=== PATIENT | female | born 1995 | race Caucasian/White ===

== ENCOUNTER 2020-12-02 20:44 | Emergency (ER) | payer OTHER ==
[~2020-12-02] VITALS: Ht 160 cm; Wt 81.6 kg
--- NOTE | 2020-12-02 20:44 | NUR ---
PT MADDY LES. TAKEN TO BED 4
--- NOTE | 2020-12-02 20:45 | NUR ---
25 Y/O F BIBA DUE TO GEN BODY WEAKNESS X6 DAYS. PER EMS, FAMILY STATED THAT SHE "ALMOST FELL ON THE FLOOR." PT STATES SHE HAS HEADACHE OF 7/10. A&OX4. GCS 15. DENIES N/V/D; SKIN IS PINK/WARM/DRY; EVEN AND STEADY GAIT; LUNGS CLEAR BL; HR EVEN AND REGULAR; PT DENIES ANY FEVER, CP, SOB, OR COUGH AT THIS TIME; PATIENT STATES PAIN OF 0/10 AT THIS TIME; VSS; PATIENT POSITIONED FOR COMFORT; HOB ELEVATED; BEDRAILS UP X2; BED DOWN. ER MD MADE AWARE OF PT STATUS. PMH: ANXIETY ALLERGIES: CIPROFLOXACIN
--- NOTE | 2020-12-02 21:10 | NUR ---
Dr. Harper examining patient.
[2020-12-02 21:11] VITALS: BP 155/104
[2020-12-02] MEDS ORDERED: NACL 0.9% 1,000 ML IV ONE (21:20)
--- NOTE | 2020-12-02 23:22 | NUR ---
IV removed, catheter intact and site benign. Applied folded 4x4 gauze and tape to stop bleeding.
[2020-12-02 23:26] VITALS: BP 155/104
--- NOTE | 2020-12-02 23:26 | NUR ---
Patient discharged with v/s stable. Written and verbal after care instructions given and explained. Patient verbalized understanding. Ambulatory with steady gait. All questions addressed prior to discharge. Advised to follow up with PMD.
== END 2020-12-02 23:26 | disposition home or self-care (01) ==
LOC: MED 20:44
DX: R53.1 Weakness (principal); R03.0 Elevated blood-pressure reading, without diagnosis of hypertension; R51.9 Headache, unspecified; R11.0 Nausea; F41.9 Anxiety disorder, unspecified
CPT/HCPCS: 96360; 99283